=== PATIENT | male | born 1965 | race Caucasian/White ===

== ENCOUNTER 2016-12-08 22:42 | Emergency (ER) | payer OTHER ==
[~2016-12-08] VITALS: Ht 185.4 cm; Wt 113.6 kg
[~2016-12-08 22:42] MED LIST: Ecotrin PO; Fish Oil PO; LOTREL 5/101 CAPSULE PO
[2016-12-08 23:01] LABS: HEMATOCRIT 45.8 % (38.0-50.0); MCH 28.6 PG (29.0-34.0); MCHC 32.5 G/DL (30.0-36.0); MCV 87.9 FL (86-99); MEAN PLAT.VOLUME 10.4 uM^3 (9.0-12.4); PLATELET COUNT 287 K/uL (156-360); RBC DIS.WIDTH-CV 12.9 % (11.8-14.6); RBC DIS.WIDTH-SD 42.2 % (39-53); RED BLOOD COUNT 5.21 M/uL (4.00-5.50); WHITE BLOOD COUNT 12.2 K/uL (4.1-10.2)
[2016-12-08 23:12] LABS: CHLORIDE 106 mEq/L (99-109); POTASSIUM 4.1 mEq/L (3.7-5.4); SODIUM 137 mEq/L (136-147)
[2016-12-08 23:14] LABS: GLUCOSE 307 mg/dL (70-99)
[2016-12-08 23:16] LABS: ANION GAP 10 MEQ/L (2-14)
[2016-12-08 23:18] LABS: GFR ESTIMATE (CALCULATED) > 59 mL/min/
[2016-12-08 23:19] LABS: UREA NITROGEN (BUN) 16 mg/dL (9-23)
[2016-12-08 23:22] LABS: TROP-I INTERPRETATION NEGATIVE; TROPONIN-I 0.01 ng/mL (0.0-0.30)
[2016-12-08 23:27] LABS: D-DIMER ELISA 0.35 mg/L FEU (< 0.57)
[2016-12-08 23:36] LABS: TOTAL BILIRUBIN 0.3 mg/dL (0.0-1.0)
[2016-12-08 23:37] LABS: ALKALINE PHOSPHATASE 69 IU/L (3-129)
[2016-12-08 23:39] LABS: DIRECT BILIRUBIN 0.1 mg/dL (0.0-0.3)
[2016-12-08 23:40] LABS: LIPASE 24 U/L (1.0-51.0)
[2016-12-09] MEDS ORDERED: SERTRALINE HCL100 MG PO (00:17)
[2016-12-09] MEDS ORDERED: INVOKAMET 50-11 EACH PO (00:17)
[2016-12-09] MEDS ORDERED: FENOFIBRATE150 MG PO (00:18)
[2016-12-09] MEDS ORDERED: POTASSIUM CHLO10 ME4 PO (00:18)
[2016-12-09] MEDS ORDERED: MOTRIN IB200 MG PO (01:42)
[2016-12-09 01:43] LABS: TROP-I INTERPRETATION NEGATIVE; TROPONIN-I < 0.01 ng/mL (0.0-0.30)
[2016-12-09] MEDS ORDERED: VITAMIN C W/AC500 M1 PO (01:43)
[2016-12-09] MEDS ORDERED: NAPROXEN500 MG PO (02:22)
[2016-12-09 02:30] VITALS: BP 141/56
== END 2016-12-09 02:40 | disposition home or self-care (01) ==
LOC: EME 22:42
PROVIDERS: Emergency Medicine
DX: R07.9 Chest pain, unspecified (principal); E11.65 Type 2 diabetes mellitus with hyperglycemia; I10 Essential (primary) hypertension; F17.200 Nicotine dependence, unspecified, uncomplicated; M54.9 Dorsalgia, unspecified; Z87.442 Personal history of urinary calculi
CPT/HCPCS: 71020; 80048; 80076; 82010; 83690; 84484; 85027; 85379; 93005; 99281; 99285; J2270